=== PATIENT | female | born 1985 | race Caucasian/White ===

== ENCOUNTER 2017-12-22 10:47 | Emergency (ER) | payer OTHER ==
[~2017-12-22] VITALS: Ht 160 cm; Wt 132.0 kg
[2017-12-22 10:50] VITALS: TEMP 36.9; Ht 160 cm; Wt 132.0 kg
--- NOTE | 2017-12-22 11:26 | EMERGENCY ROOM VISIT NOTE ---
History Report prepared by Colton[place]adolph: Elva Herrera Under the Supervision of: Dr. Martin Balderas M.D. First contact with patient: 10:58 Chief Complaint: ANXIETY Stated Complaint: SOB/CHEST TIGHTNESS/ANXIETY History of Present Illness The patient is a 32 year old white female with a past medical history of anxiety who presents to the ED with a cc of anxiety beginning prior to arrival. She was brought to the ED via EMS. She reports she got a call that her daughter was sick and needed to be picked up from school, and while she was driving, she began to feel heart palpitations, tingling in her hands, a feeling of " tightness in my chest" and shortness of breath. The episode lasted for about 15 minutes. She takes daily Xanax for her history of anxiety but notes she did not take it this morning. Positive swelling in the legs which is chronic for the patient. Negative calf pain or recent prolonged car or plane travel. The patient admits to a history of anxiety, for which she takes daily medication. She denies any previous cardiac history. She notes she has been under increased stress with just recently moving to the area. 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 A total of ten systems were reviewed and were otherwise negative. Past Medical & Surgical Medical Problems: (1) Anxiety Social History Smoking Status: Never Smoker Alcohol Use: occasionally Drug Use: none Marital Status: Housing Status: lives with family Occupation Status: employed Current/Historical Medications Scheduled Alprazolam (Xanax), 0.25 MG PO QID Escitalopram Oxalate (Lexapro), 1 TAB PO DAILY Fluoxetine HCl (Fluoxetine), 1 CAP PO DAILY Topiramate (Topamax), 1 CAP PO DAILY Miscellaneous Medications Diphenhydramine Hcl (Sleep) (Sleep Aid) Sumatriptan Succinate (Imitrex), 25 MG PO Allergies Coded Allergies: Allopurinol (Unverified Allergy, Unknown, UNKNOWN, 12/22/17) Ampicillin (Unverified Allergy, Unknown, UNKNOWN, 12/22/17) Aspirin (Unverified Allergy, Unknown, UNKNOWN, 12/22/17) Clindamycin (Unverified Allergy, Unknown, UNKNOWN, 12/22/17) Penicillins (Unverified Allergy, Unknown, UNKNOWN, 12/22/17) Sulfamethoxazole w/Trimethoprim (Unverified Allergy, Unknown, UNKNOWN, 12/22) Physical Exam Vital Signs Date Time Temp Pulse Resp B/P (MAP) Pulse Ox O2 Delivery O2 Flow Rate FiO2 12/22/17 12:53 76 16 135/87 97 12/22/17 10:52 85 12/22/17 10:50 36.9 83 16 156/91 97 Room Air Physical Exam GENERAL: Awake, alert, tearful and anxious-appearing, obese, NAD HENT: Normocephalic, atraumatic. EYES: Normal conjunctiva. Sclera non-icteric. PERRL. No anisocoria. NECK: Supple. No nuchal rigidity. FROM. RESPIRATORY: CTAB, no rhonchi, wheezing, crackles CARDIAC: RRR, no MRG ABDOMEN: Soft, NTND, BS+ MSK: No chest wall TTP, no LE edema, negative Tania's sign NEURO: GCS 15, CN 2-12 intact, moves all 4s on command SKIN: No rash or jaundice noted. Medical Decision & Procedures ER Provider Diagnostic Interpretation: Radiology results as stated below per my review and radiologist interpretation: CHEST ONE VIEW PORTABLE CLINICAL HISTORY: 32 years-old Female presenting with chest pain and chest tightness. TECHNIQUE: Portable upright AP view of the chest was obtained. COMPARISON: None. FINDINGS: Cardiomediastinal silhouette normal. Mild prominence of the main pulmonary artery. No focal opacity. No large effusion or pneumothorax. Osseous structures normal. Upper abdomen normal. IMPRESSION: 1. Mild prominence of the main pulmonary artery could suggest pulmonary hypertension. Otherwise no acute cardiopulmonary disease. Electronically signed by: Valentin Saeed M.D. 12/22/2017 11:56 AM ECG Per My Interpretation Indication: chest pain Rate (beats per minute): 74 Rhythm: normal sinus Findings: other (normal intervals, normal axis, TWI in lead 3, no other STS changes or TWI) ED Course 1113: The patient was evaluated in room C7. A complete history and physical exam was performed. 1240: I reevaluated the patient. I discussed her results and discharge instructions. She verbalized complete understanding and agreement. Medical Decision The patient is a 32 year old white female with a past medical history of anxiety who presents to the ED with a cc of anxiety beginning prior to arrival. Triage Nursing notes reviewed. The patient's presentation and history were concerning for chest pain. Differential diagnosis: Etiologies such as cardiac ischemia, aortic dissection, pulmonary embolism, pneumonia, pneumothorax, musculoskeletal, infections, pericarditis, myocarditis , esophageal rupture, gastrointestinal, as well as others were entertained. Nursing notes reviewed. Ancillary studies and prior records reviewed. Patient was seen and evaluated the bedside. Patient did complain of feeling very anxious with associated palpitations shortness of breath and chest pain. Patient is a prior history of anxiety. Patient does take daily medications for this and also does take Xanax as well as a sleep aid as needed. The patient denies any current active chest pain or shortness of breath. No prior history of DVT or PE. The patient states that she has had some decrease in sleep and some stresses they recently moved from [place]. Patient on exam is well-appearing. The patient did have an EKG and a chest x- ray completed. Chest x-ray showed possibly increased pulmonary vasculature. I did convey this to the patient stated that given her hypertension she should consider diet, exercise, and follow-up with the PCP or discuss antihypertensive management. The patient was given referrals by our returned case inspector. Patient's EKG did not show any acute ischemic changes. Given the patient's history and physical exam this is most likely anxiety. I do not believe the believe that she requires any blood work. Patient is also fairly asymptomatic at this time. Less likely PE again given the patient's history and physical exam. Patient was given strict follow-up, discharge, and return precautions. All questions were answered. Patient was deemed suitable for outpatient follow-up at this time. Patient agreed with the plan of care and was safely discharged home. Blood Pressure Screening Patient's blood pressure: Elevated blood pressure Blood pressure disposition: Referred to PCP Impression Primary Impression: Anxiety Additional Impression: Hypertension Scribe Attestation The scribe's documentation has been prepared under my direction and personally reviewed by me in its entirety. I confirm that the note above accurately reflects all work, treatment, procedures, and medical decision making performed by me. Departure Information Dispostion Home / Self-Care Referrals No Doctor, Assigned (PCP) Patient Instructions Anxiety Disorder, Hypertension Control, Hypertension Id, My [facility] Additional Instructions Please return to the emergency department if you have worsening or recurrent symptoms not amenable to at-home treatment. Please call for a follow-up appointment with her primary care physician. Please take your medications as prescribed. If you have other concerns and/or complaints please feel free to also call your primary care physician's office or return the ED for further evaluation, management, and treatment. You were found to have an elevated blood pressure today (>120 sytolic or >90 diastolic). Per medicare guidelines, you need to follow up with this blood pressure screening with your Primary Care Physician (PCP). For a new PCP call [phone]. Take your medications as prescribed. Please follow-up with the PCP within the month in order to get to establish now that you are a resident. Please also discussed treatment for hypertension. Please also consider improving her diet and increased exercise to help with high blood pressure. You have been examined and treated today on an emergency basis only. This is not a substitute for, or an effort to provide, complete comprehensive medical care. It is impossible to recognize and treat all injuries or illnesses in a single emergency department visit. It is therefore important that you follow up closely with [facility], your PCP, and/or your specialist(s). Call as soon as possible for an appointment. Thank you for your time and consideration. I look forward to speaking with you again soon. Please don't hesitate to call us if you have any questions. Problem Qualifiers Additional Impression: Hypertension Hypertension type: unspecified Qualified Codes: I10 - Essential (primary) hypertension
[2017-12-22] MEDS ORDERED: ESCI1TAB10 PO (11:51)
[2017-12-22] MEDS ORDERED: SUMA25TA PO (11:51)
[2017-12-22] MEDS ORDERED: FLUO60TA4 PO (11:51)
[2017-12-22] MEDS ORDERED: TOPI50TA24 PO (11:51)
[2017-12-22] MEDS ORDERED: ALPR-411 PO (11:51)
[2017-12-22] MEDS ORDERED: DIPH1TAB98 (11:51)
--- NOTE | 2017-12-22 11:57 | DIAGNOSTIC IMAGING REPORT ---
CHEST ONE VIEW PORTABLE CLINICAL HISTORY: 32 years-old Female presenting with chest pain and chest tightness. TECHNIQUE: Portable upright AP view of the chest was obtained. COMPARISON: None. FINDINGS: Cardiomediastinal silhouette normal. Mild prominence of the main pulmonary artery. No focal opacity. No large effusion or pneumothorax. Osseous structures normal. Upper abdomen normal. IMPRESSION: 1. Mild prominence of the main pulmonary artery could suggest pulmonary hypertension. Otherwise no acute cardiopulmonary disease. Electronically signed by: Valentin Saeed M.D. 12/22/2017 11:56 AM Dictated Date/Time: 12/22/2017 11:55 AM
[2017-12-22 12:53] VITALS: BP 135/87; PULSE 76; O2SAT 97
== END 2017-12-22 12:55 | disposition home or self-care (01) ==
LOC: EDBD 10:47 → C.EDC 10:48
DX: F41.9 Anxiety disorder, unspecified (principal); I10 Essential (primary) hypertension; Z79.899 Other long term (current) drug therapy; Z88.0 Allergy status to penicillin; Z88.2 Allergy status to sulfonamides; Z88.1 Allergy status to other antibiotic agents; Z88.6 Allergy status to analgesic agent; Z88.8 Allergy status to other drugs, medicaments and biological substances